=== PATIENT | male | born 1995 | race Caucasian/White ===

== ENCOUNTER 2018-02-05 00:43 | Emergency (ER) | payer OTHER ==
[~2018-02-05] VITALS: Ht 188 cm; Wt 99.8 kg
[2018-02-05 01:02] LABS: BASOPHILS ABSOLUTE AUTO 0.08 K/mm3 (0.00-0.23); BASOPHILS PERCENT AUTO 0 % (0-2); EOSINOPHILS PERCENT AUTO 1 % (0-6); Hematocrit 45.4 % (37.0-53.0); Hemoglobin 15.9 g/dL (13.5-17.5); IMMATURE GRAN ABSOLUTE AUTO 0.56 K/mm3 (0.00-0.10); IMMATURE GRAN PERCENT AUTO 3 % (0-1); LYMPHOCYTES ABSOLUTE AUTO 4.36 K/mm3 (0.84-5.20); LYMPHOCYTES PERCENT AUTO 22 % (21-46); MONOCYTES ABSOLUTE AUTO 0.46 K/mm3 (0.16-1.47); MONOCYTES PERCENT AUTO 2 % (4-13); Mean Corpuscular HGB 32.9 pg (26.0-34.0); Mean Corpuscular Volume 94 fL (80-100); Mean Platelet Volume 10.2 fL (9.1-12.4); NEUTROPHILS ABSOLUTE AUTO 14.31 K/mm3 (1.96-9.15); NEUTROPHILS PERCENT AUTO 72 % (41-73); Platelet Count 212 K/mm3 (150-400); RDW Coefficient Variation 12.1 % (11.7-14.2); Red Blood Cell Count 4.83 M/mm3 (4.30-5.90); White Blood Cell Count 19.97 K/mm3 (4.00-11.30)
[2018-02-05 01:15] LABS: Calcium, Ionized (POC) 0.98 mmol/L (1.10-1.46); Chloride (POC) 107 mmol/L (98-108); Creatinine (POC) 0.9 mg/dL (0.8-1.3); Glucose (ISTAT POC) 175 mg/dL (70-99); Hemoglobin (POC) 15.6 g/dL (13.5-17.5); Potassium (POC) 3.3 mmol/L (3.5-5.5); Sodium (POC) 143 mmol/L (135-148); Total CO2 (POC) 21 mmol/L (21-32)
[2018-02-05 01:31] LABS: International Normalized Ratio 1.09; Prothrombin Time Results 11.4 Sec (9.7-11.5)
[2018-02-05 01:46] LABS: Alanine Aminotransfer (ALT/SGP 72 U/L (12-78); Albumin, Blood 3.7 g/dL (3.4-5.0); Albumin/Globulin Ratio 1.1 (0.8-1.8); Alk Phos 63 U/L (50-136); Anion Gap 12 mmol/L (6-16); Aspartate Aminotrans (AST/SGOT 87 U/L (12-37); Bilirubin, Total 0.5 mg/dL (0.1-1.0); Blood Urea Nitrogen 6 mg/dL (8-24); Bun/Creatinine Ratio 9.1 (12.0-20.0); CO2, Blood 18 mmol/L (21-32); Calcium, Blood 7.4 mg/dL (8.5-10.1); Chloride, Blood 112 mmol/L (98-108); Creatinine, Blood 0.66 mg/dL (0.60-1.20); Ethanol (Alcohol), Blood, Med 125 mg/dL; Globulin, Blood 3.3 g/dL (2.2-4.0); Glomerular Filtration Rate >60 (60-); Glucose, Blood 167 mg/dL (70-99); Potassium, Blood 3.6 mmol/L (3.5-5.5); Sodium, Blood 142 mmol/L (136-145)
== END 2018-02-05 01:45 | disposition short-term general hospital (02) ==
LOC: ER 00:43
PROVIDERS: Emergency Medicine
DX: S02.113A Unspecified occipital condyle fracture, initial encounter for closed fracture (principal); S02.19XA Other fracture of base of skull, initial encounter for closed fracture; S02.32XA Fracture of orbital floor, left side, initial encounter for closed fracture; S27.322A Contusion of lung, bilateral, initial encounter; F10.129 Alcohol abuse with intoxication, unspecified; Y90.6 Blood alcohol level of 120-199 mg/100 ml; V47.6XXA Car passenger injured in collision with fixed or stationary object in traffic accident, initial encounter; I10 Essential (primary) hypertension
CPT/HCPCS: 51702; 70450; 71045; 72170; 80047; 80053; 83690; 85014; 85025; 85610; 85730; 86850; 86900; 86901; 94002; 96365; 96368; 96375; 99291; C1771; G0480; J0690; J3010; J7040; L0160

== ENCOUNTER → 2019-09-04 | Outpatient (CLI) | payer OTHER ==
[2019-09-04 16:24] LABS: BASOPHILS ABSOLUTE AUTO 0.05 K/mm3 (0.00-0.23); BASOPHILS PERCENT AUTO 1 % (0-2); EOSINOPHILS PERCENT AUTO 2 % (0-6); Hematocrit 45.3 % (37.0-53.0); Hemoglobin 15.9 g/dL (13.5-17.5); IMMATURE GRAN ABSOLUTE AUTO 0.02 K/mm3 (0.00-0.10); IMMATURE GRAN PERCENT AUTO 0 % (0-1); LYMPHOCYTES PERCENT AUTO 27 % (21-46); MONOCYTES ABSOLUTE AUTO 0.46 K/mm3 (0.16-1.47); MONOCYTES PERCENT AUTO 7 % (4-13); Mean Corpuscular HGB 32.2 pg (26.0-34.0); Mean Corpuscular HGB Conc 35.1 g/dL (31.5-36.5); Mean Corpuscular Volume 92 fL (80-100); Mean Platelet Volume 10.4 fL (9.1-12.4); NEUTROPHILS ABSOLUTE AUTO 4.04 K/mm3 (1.96-9.15); NEUTROPHILS PERCENT AUTO 63 % (41-73); Platelet Count 184 K/mm3 (150-400); RDW Coefficient Variation 12.3 % (11.7-14.2); RDW Standard Deviation 40.9 fL (35.1-46.3); Red Blood Cell Count 4.94 M/mm3 (4.30-5.90); White Blood Cell Count 6.37 K/mm3 (4.00-11.30)
[2019-09-04 16:44] LABS: Alanine Aminotransfer (ALT/SGP 47 U/L (12-78); Albumin, Blood 4.3 g/dL (3.4-5.0); Albumin/Globulin Ratio 1.5 (0.8-1.8); Alk Phos 63 U/L (40-126); Anion Gap 8 mmol/L (6-16); Aspartate Aminotrans (AST/SGOT 21 U/L (12-37); Bilirubin, Total 0.6 mg/dL (0.1-1.0); Blood Urea Nitrogen 12 mg/dL (8-24); Bun/Creatinine Ratio 14.3 (12.0-20.0); CO2, Blood 28 mmol/L (21-32); Calcium, Blood 8.6 mg/dL (8.5-10.1); Chloride, Blood 108 mmol/L (98-108); Creatinine, Blood 0.84 mg/dL (0.60-1.20); Globulin, Blood 2.9 g/dL (2.2-4.0); Glomerular Filtration Rate >60 (60-); Glucose, Blood 97 mg/dL (70-99); Potassium, Blood 3.9 mmol/L (3.5-5.5); Sodium, Blood 144 mmol/L (136-145); Thyroid Stimulating Hormone 0.704 uIU/mL (0.360-4.800); Total Protein, Blood 7.2 g/dL (6.4-8.2); Troponin I <0.017 ng/mL (0.000-0.040)
== END | disposition home or self-care (01) ==
LOC: LAB EV 16:20 → LAB SHORT 16:20
PROVIDERS: Physician Assistant
DX: R00.2 Palpitations (principal)
CPT/HCPCS: 80053; 84443; 84484; 85025

== ENCOUNTER → 2021-07-16 | Outpatient (CLI) | payer OTHER ==
[2021-07-16 12:22] LABS: BASOPHILS ABSOLUTE AUTO 0.03 K/mm3 (0.00-0.23); BASOPHILS PERCENT AUTO 0 % (0-2); EOSINOPHILS ABSOLUTE AUTO 0.18 K/mm3 (0.00-0.68); EOSINOPHILS PERCENT AUTO 3 % (0-6); Hematocrit 41.6 % (37.0-53.0); Hemoglobin 14.8 g/dL (13.5-17.5); IMMATURE GRAN ABSOLUTE AUTO 0.01 K/mm3 (0.00-0.10); IMMATURE GRAN PERCENT AUTO 0 % (0-1); LYMPHOCYTES ABSOLUTE AUTO 1.49 K/mm3 (0.84-5.20); LYMPHOCYTES PERCENT AUTO 21 % (21-46); MONOCYTES ABSOLUTE AUTO 0.67 K/mm3 (0.16-1.47); MONOCYTES PERCENT AUTO 9 % (4-13); Mean Corpuscular HGB Conc 35.6 g/dL (31.5-36.5); Mean Corpuscular Volume 87 fL (80-100); Mean Platelet Volume 10.1 fL (9.1-12.4); NEUTROPHILS ABSOLUTE AUTO 4.71 K/mm3 (1.96-9.15); NEUTROPHILS PERCENT AUTO 67 % (41-73); Platelet Count 178 K/mm3 (150-400); RDW Coefficient Variation 11.5 % (11.7-14.2); Red Blood Cell Count 4.77 M/mm3 (4.30-5.90); White Blood Cell Count 7.09 K/mm3 (4.00-11.30)
[2021-07-16 12:30] LABS: Alanine Aminotransfer (ALT/SGP 37 U/L (12-78); Albumin, Blood 3.8 g/dL (3.4-5.0); Albumin/Globulin Ratio 1.2 (0.8-1.8); Alk Phos 70 U/L (40-126); Anion Gap 10 mmol/L (6-16); Aspartate Aminotrans (AST/SGOT 9 U/L (12-37); Bilirubin, Total 0.5 mg/dL (0.1-1.0); Blood Urea Nitrogen 10 mg/dL (8-24); Bun/Creatinine Ratio 14.9 (12.0-20.0); CO2, Blood 26 mmol/L (21-32); Chloride, Blood 107 mmol/L (98-108); Creatinine, Blood 0.67 mg/dL (0.60-1.20); Globulin, Blood 3.2 g/dL (2.2-4.0); Glomerular Filtration Rate >60 (60-); Glucose, Blood 116 mg/dL (70-99); Potassium, Blood 3.7 mmol/L (3.5-5.5); Sodium, Blood 143 mmol/L (136-145)
== END | disposition home or self-care (01) ==
LOC: LAB SHORT 12:15 → LAB 12:15
PROVIDERS: General Practice
DX: R07.9 Chest pain, unspecified (principal)
CPT/HCPCS: 80053; 85025; 85379

== ENCOUNTER → 2022-03-04 | Outpatient (CLI) | payer BC, OTHER | END | disposition home or self-care (01) | LOC: LAB SHORT 15:19 → LAB 15:19 | DX: J03.90 Acute tonsillitis, unspecified (principal) | CPT/HCPCS: 87081 ==

== ENCOUNTER 2023-06-20 04:24 | Emergency (ER) | payer BC, OTHER ==
[~2023-06-20] VITALS: Ht 182.9 cm; Wt 97.5 kg
[2023-06-20 04:33] VITALS: BP 137/84
== END 2023-06-20 05:55 | disposition home or self-care (01) ==
LOC: ER 04:24
DX: F32.A Depression, unspecified (principal); I10 Essential (primary) hypertension
CPT/HCPCS: 36415; 99285